=== PATIENT | male | born 1995 | race Caucasian/White ===

== ENCOUNTER 2016-05-29 12:02 | Emergency (ER) | payer OTHER ==
[~2016-05-29] VITALS: Ht 157.5 cm; Wt 65.0 kg
[2016-05-29 12:04] VITALS: BP 159/91; PULSE 95; RESP 16; TEMP 98.2; O2SAT 98
[2016-05-29] MEDS ORDERED: KETOROLAC TROMETHAMINE 30 MG/ML (IVP) VIAL IM ONE (13:30)
--- NOTE | 2016-05-29 13:35 | PD ---
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 Patient is a student at [employer]. He was at class and noticed a headache, occipital. States that his eyes felt like they were fluttering. Slightly nauseous. He occasionally will get headaches, but they typically are this bad. He states that the headache is moderate, he has not taken anything prior to arrival. History of seizures, but is no longer on any antiepileptics. He has had his current MANAGER EVENT shunt for 18 years, having 6 shunt revisions within the first year of life. [facility] Past Medical History Genetic Disorder: Yes (congenital hydrocephalus status post MANAGER EVENT shunt) Headaches: Yes Seizures: Yes Past Surgical History Other Surgery: Yes (MANAGER EVENT shunt) Social History Alcohol Use: No Tobacco Use: No Substance Use: No Allergies-Medications (Allergen,Severity, Reaction): Coded Allergies: Latex (Verified Allergy, Severe, SWELLING, 05/29/16) [place] (Verified Allergy, Severe, RASH, 05/29/16) Review of Systems Except as stated in HPI: all other systems reviewed are Neg Physical Exam Narrative GENERAL: Well-appearing teen in no acute distress SKIN: Warm and dry. HEAD: Shunt insertion in the right parietal scalp. Normocephalic. EYES: Pupils equal and round. No scleral icterus. No injection or drainage. ENT: No nasal bleeding or discharge. Mucous membranes pink and moist. NECK: Supple. Palpable shunt tubing on the right neck CARDIOVASCULAR: Regular rate and rhythm. RESPIRATORY: No accessory muscle use. GASTROINTESTINAL: Abdomen soft, non-tender, nondistended. MUSCULOSKELETAL: Moderate NEUROLOGICAL: Awake and alert. No obvious cranial nerve deficits. Motor grossly within normal limits. Normal speech. PSYCHIATRIC: Appropriate mood and affect; insight and judgment normal. 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 Differential includes hydrocephalus, shunt malfunction, tension headache, cluster headache, migraine headache. Symptoms are not consistent with seizure activity.Patient has been afebrile, no neck stiffness or noctural headaches, is well-appearing, with a normal neurologic examination. This makes infection and subarachnoid hemorrhage very unlikely. There is not enough evidence to pursue these diagnoses. Narrative Course Patient given IM Toradol. CT of the brain and x-ray shunt series showed small slitlike ventricles suggesting that patient may be over shunted. Patient is here for College does not have a local neurosurgeon. I spoke with our on-call neurosurgery, Dr. Simons, patient is well-appearing and she is okay with outpatient follow-up. Patient feels improved after Toradol will be discharged home. Diagnosis Primary Impression: Headache Qualified Code: R51 - Acute nonintractable headache, unspecified headache type Additional Impression: MANAGER EVENT (ventriculoperitoneal) shunt status Referrals: Juan C Simons call for appointment Additional Instructions: Tylenol, ibuprofen as needed for headache. Follow with no local neurosurgeon as discussed. Return to the ER for the warning signs discussed. Med/Other Pt SpecificInfo: No Change to Meds Disposition: 01 DISCHARGE HOME Condition: Stable Yeimy Reynoso MD May 29, 2016 13:35
--- NOTE | 2016-05-29 14:33 | RADRPT ---
EXAM DATE/TIME: 05/29/2016 14:13 [facility] COMPARISON: No previous studies available for comparison. INDICATIONS : Headache, dizziness, and blurred vision. MEDICAL HISTORY : None. SURGICAL HISTORY : Shunt ENCOUNTER: Initial ACUITY: 4 - 6 days PAIN SCORE: 5/10 LOCATION: Right Head FINDINGS: Radiograph of the skull, neck, chest and abdomen performed to evaluate shunt patency. The shunt cath eter is seen entering the right frontal region with its tip in the region of the body of the right la teral ventricle.. The catheter is continuous in its course terminating in the right lower quadrant No catheter disrupti on is identified. The visualized heart, lungs and abdominal structures are intact. CONCLUSION: Intact shunt. Alfredo Bobo MD on May 29, 2016 at 14:30 Board Certified Radiologist. This report was verified electronically.
--- NOTE | 2016-05-29 14:38 | RADRPT ---
EXAM DATE/TIME: 05/29/2016 13:42 [facility] COMPARISON: No previous studies available for comparison. INDICATIONS : Cephalgia, dizziness and blurred vision x 3 days. RADIATION DOSE: 56.77 CTDIvol (mGy) MEDICAL HISTORY : Hydrocephalus. SURGICAL HISTORY : [employer] shunt. ENCOUNTER: Initial ACUITY: 3 days PAIN SCALE: 5/10 LOCATION: Cranial TECHNIQUE: Multiple contiguous axial images were obtained of the head. Using automated exposure control and adj ustment of the mA and/or kV according to patient size, radiation dose was kept as low as reasonably a chievable to obtain optimal diagnostic quality images. FINDINGS: The patient has a shunt in place ending from the right with small slit like ventricles suggesting the patient may be over shunted. There is no parenchymal hemorrhage, acute infarction or mass lesion. There are no extra-axial fluid collection appreciated. Posterior fossa is unremarkable. CONCLUSION: Small slit like ventricles as described above with ventriculoperitoneal shunt. Ankush Arellano MD FACR on May 29, 2016 at 14:24 Board Certified Radiologist. This report was verified electronically.
[2016-05-29 16:38] VITALS: BP 123/62
== END 2016-05-29 16:38 | disposition home or self-care (01) ==
LOC: NEPA 12:02
DX: Z98.2 Presence of cerebrospinal fluid drainage device (principal)
CPT/HCPCS: 70250; 70450; 71010; 72040; 74000; 96372; 99284; J1885